=== PATIENT | female | born 1990 | race Caucasian/White ===

== ENCOUNTER 2016-10-17 21:51 | Inpatient (IN) | payer OTHER ==
[2016-10-17] MEDS ORDERED: Oxytocin in LR* 20 UNITS/1,000 ML BAG IVPB ONE (23:10)
[2016-10-17 23:25] LABS: Hematocrit 36 % (35-47); Hemoglobin 11.8 g/dl (12.0-16.0); Mean Corpuscular HGB Conc 33 g/dl (31-36); Mean Corpuscular Hemoglobin 25 pg (27-31); Mean Corpuscular Volume 77 fL (80-97); Mean Platelet Volume 8 um3 (7.4-10.4); Red Blood Count 4.65 10^6/ul (4.0-5.4); Red Cell Distribution Width 16 % (10.5-15); White Blood Count 13.1 10^3/ul (3.5-10.8)
[2016-10-17] MEDS ORDERED: Oxytocin in LR* 20 UNITS/1,000 ML BAG IVPB SCH (23:45)
[2016-10-18] MEDS ORDERED: OBEPIDURAL* 250 ML ONE (06:22)
[2016-10-18] MEDS ORDERED: Famotidine TAB* 20 MG PO PRN (06:50)
[2016-10-18] MEDS ORDERED: Sodium Citrate/Citric Acid* 15 ML UDC PO PRN (06:50)
[2016-10-18] MEDS ORDERED: Phenylephrine IV* 40 MCG/ML 10 ML SYRINGE IV PUSH PRN ×4 (06:50→12:14)
[2016-10-18] MEDS ORDERED: OBEPIDURAL* 250 ML EPIDURAL SCH ×2 (07:00→13:00)
[2016-10-18] MEDS ORDERED: EPHEDrine (Pressors)* 50 MG/ML VIAL IV PUSH PRN ×2 (12:14)
[2016-10-18] MEDS ORDERED: Acetaminophen TAB* 325 MG PO PRN (16:14)
[2016-10-18] MEDS ORDERED: Dibucaine 1% 28.35 GM TUBE ONE (16:25)
[2016-10-18] MEDS ORDERED: Witch Hazel PAD* JAR ONE (16:25)
[2016-10-18] MEDS ORDERED: Oxytocin in LR* 20 UNITS/1,000 ML BAG IVPB SCH (17:00)
[2016-10-18] MEDS: Ibuprofen TAB* 600 MG PO PRN (17:40)
[2016-10-18] MEDS ORDERED: Phenylephrine IV* 40 MCG/ML 10 ML SYRINGE ONE (18:45)
[2016-10-18] MEDS: Docusate CAP* 100 MG PO SCH (20:51)
[2016-10-19] MEDS: Ibuprofen TAB* 600 MG PO PRN ×3 (01:17→17:02)
[2016-10-19] MEDS: Witch Hazel PAD* JAR TOPICAL PRN (06:01)
[2016-10-19] MEDS: Dibucaine 1% 28.35 GM TUBE PR PRN (06:01)
[2016-10-19 07:08] LABS: Hematocrit 29 % (35-47); Hemoglobin 9.4 g/dl (12.0-16.0); Mean Corpuscular HGB Conc 33 g/dl (31-36); Mean Corpuscular Hemoglobin 25 pg (27-31); Mean Corpuscular Volume 78 fL (80-97); Mean Platelet Volume 8 um3 (7.4-10.4); Red Blood Count 3.73 10^6/ul (4.0-5.4); Red Cell Distribution Width 16 % (10.5-15); White Blood Count 14.6 10^3/ul (3.5-10.8)
[2016-10-19] MEDS: Ferrous Gluconate TAB* 324 MG TAB PO SCH ×2 (08:55→21:38)
[2016-10-19] MEDS: Docusate CAP* 100 MG PO SCH ×3 (08:55→21:38)
[2016-10-20] MEDS: Ibuprofen TAB* 600 MG PO PRN (03:53)
[2016-10-20 08:10] VITALS: BP 116/79
[2016-10-20] MEDS: Ferrous Gluconate TAB* 324 MG TAB PO SCH (08:36)
[2016-10-20] MEDS: Docusate CAP* 100 MG PO SCH (08:36)
[2016-10-20] MEDS: Dibucaine 1% 28.35 GM TUBE PR PRN (10:07)
[2016-10-20] MEDS: Witch Hazel PAD* JAR TOPICAL PRN (10:07)
== END 2016-10-20 13:20 | disposition home or self-care (01) | DRG 560 ==
LOC: MCHOBOUT 21:51 → MCHOB 22:40
PROVIDERS: ADMIT Midwife; ATTEND Midwife
PROC: 10E0XZZ Delivery of Products of Conception, External Approach (ICD-10-PCS; principal; 2016-10-17)
PROC: 0KQM0ZZ Repair Perineum Muscle, Open Approach (ICD-10-PCS; 2016-10-17)
PROC: 4A1HX4Z Monitoring of Products of Conception, Cardiac Electrical Activity, External Approach (ICD-10-PCS; 2016-10-17)
DX: O42.02 Full-term premature rupture of membranes, onset of labor within 24 hours of rupture (principal); K64.9 Unspecified hemorrhoids; O48.0 Post-term pregnancy; O75.89 Other specified complications of labor and delivery; Z3A.40 40 weeks gestation of pregnancy; O70.1 Second degree perineal laceration during delivery; Z37.0 Single live birth; O90.81 Anemia of the puerperium
CPT/HCPCS: 36415; 84112; 85025; 86850; 86900; 86901; A9270-GY